=== PATIENT | female | born 1980 | race Caucasian/White ===

== ENCOUNTER 2016-09-30 10:48 | Emergency (ER) | payer MEDICARE, MEDICAID ==
[2016-09-30 11:06] VITALS: TEMP 98.8; BMI 44.8
[2016-09-30] MEDS ORDERED: METOCLOPRAMIDE 10 MG/2 ML VIAL IM ONE (12:13)
[2016-09-30] MEDS ORDERED: HYDROmorphone 1 MG INJECTION IM ONE (12:13)
[2016-09-30] MEDS ORDERED: DIPHENHYDRAMINE 50 MG/ML VIAL IM ONE (12:13)
--- NOTE | 2016-09-30 12:18 | EDPRACDOC ---
- General Information Chief Complaint: Headache Stated Complaint: MIGRAINE Time Seen by Provider: 09/30/16 12:08 Information Source: Patient Home Medications: Home Medications Gabapentin [Neurontin] 800 mg PO TID 09/21/13 Oxycodone HCl [Oxycontin] 10 mg PO BID 10/11/13 Nortriptyline HCl 5 mg PO DAILY 01/15/16 Rosuvastatin [Crestor] 10 mg PO HS 01/15/16 Allergies/Adverse Reactions: Allergies Allergy/AdvReac Type Severity Reaction Status Date / Time aspirin Allergy Difficulty Verified 09/30/16 12:00 Breathing celecoxib [From Celebrex] Allergy Difficulty Verified 09/30/16 12:00 Breathing rofecoxib [From Vioxx] Allergy Difficulty Verified 09/30/16 12:00 Breathing - History of Present Illness Onset: 3 days HPI: Pt c/o generalized headache with n/v, light sensitivity x 3 days. Hx headaches and feels similar to previous. Denies fever, earache, sore throat, congestion, cough, cp, sob, abd pain, changes in bowel or bladder. Pt states has appointment in October with neurologist due to back pain. Location: Reports: Generalized Pain Quality: Reports: Moderate, Throbbing, Like Previous Headaches Modifying Factors: improves with: Exposure to light Prior work up: Reports: CT Associated Signs and Symptoms: Reports: Frequent Headaches, Nausea/Vomiting ED Past Medical History - History Reviewed Yes Nurses notes reviewed and agree except as marked - Patient Medical History Cardiac History: Reports: Hypertension, Hypercholesterolemia Psychological History: Denies: Depression Systemic History: Reports: Diabetes Surgical History: Reports: Cholecystectomy, Hysterectomy, Other (CSXN) - Social Medical History Smoking Status: Never smoker ETOH: None Substance Abuse: None EDM Review of Systems - Review of Systems Constitutional: No Symptoms Reported. negative: Fever, Chills, Weakness, Fatigue, Loss of Appetite Eyes: Light Sensitive Ears: No Symptoms Reported. negative: Pain, Hearing Loss, Drainage, Ear Pulling Throat: No Symptoms Reported. negative: Pain, Swelling Nose: No Symptoms Reported. negative: Congestion, Bleeding, Discharge, Injection, Swelling, Deformity, Ecchymosis, Tender, Abrasion, Laceration Mouth: No Symptoms Reported. negative: Pain, Drooling Respiratory: No Symptoms Reported. negative: Cough, Brassy Cough, Barky Cough, Shortness of Breath, Wheezing, Hemoptysis Cardiovascular: No Symptoms Reported. negative: Chest Pain, Palpitations, Syncope, Edema, Orthopnea, PND, Skin Mottling, Cyanosis Gastrointestinal: Nausea, Vomiting Genitourinary: No Symptoms Reported. negative: Dysuria, Hematuria, Frequency, Discharge, Bleeding, Testicular Pain, Neurological: Headache Musculoskeletal: No Symptoms Reported. negative: Neck, Chestwall, Ribs, Back, Shoulder, Arm, Elbow, Forearm, Wrist, Hand, Pelvis, Hip, Femur, Knee, Leg, Ankle , Foot Integumentary: No Symptoms Reported. negative: Itching, Rash, Bruising, Wound Allergic/Immunologic: No Symptoms Reported. negative: Hives, Itching Hematologic: No Symptoms Reported. negative: Lymphadenopathy, Easy Bruising, Easy Bleeding Psychiatric: No Symptoms Reported. negative: Anxiety, Depression, Hallucinations, Insomnia, Suicidal - Physical Exam Constitutional: Alert (Awake), No apparent distress Oriented to: Time, Person, Place Last recorded Vital Signs: Last Vital Signs Temp 98.8 F 09/30/16 11:03 Pulse 112 09/30/16 11:46 Resp 20 09/30/16 11:46 BP 157/95 09/30/16 11:46 Pulse Ox 96 09/30/16 11:46 Oxygen Pulse Oxygen Saturation 96 O2 Device Room Air Oxygen Flow Rate Fraction of Inspired Oxygen ( FIO2) - HEENT Head: Normal ( normocephalic) Eye Exam: Normal (PERRL, EOMI, Sclera white) Oropharynx: Normal (Pharynx:Moist without exudate,Gums-no swelling) Tympanic Membrane: Normal ENT EAC: Normal TMJ: Normal Nose: No Symptoms Reported (septum midline) Neck: Normal (FROM, trachea at midline) - Respiratory/Cardiovascular Respiratory: Normal - CTA (BBS clear to auscultation without adventitious sounds ) Cardiovascular: Normal (RRR without murmur, gallop or rub) - GI Auscultation: Normal (NABS) Palpation: Normal (Soft,No rebound or guarding, non distended) Tenderness: Non tender - Musculoskeletal Back: Normal (Non-Tender) Extremities: Normal (Normal tone, Pulses 2+ No cyanosis or edema, FROM) - Integumentary Skin: Normal, Warm, Dry Lymphatics: Normal (no adenopathy) - Neurologic Memory Impaired: Normal Motor Function: Normal (Normal tone, Pulses 2+ No cyanosis or edema, FROM) Cranial Nerve: Normal (CN II-X11 intact sensation, strength 5/5) Cerebellar: Normal Mood Description: Normal Perception: Normal - Differential Diagnosis Migraine, Acute Benign Cephalgia Decision Time to Discharge: 12:55 - Departure Disposition: Home Condition: Good Final Diagnosis: Migraine Instructions: Migraine Headache (ED) Education/Counseling Given To: Patient Education/Counseling Given Regarding: Diagnosis, Treatment, Follow Up Referrals: Teresa Weber PA [Primary Care Provider] - One Week Prescriptions: No Action Gabapentin [Neurontin] 800 mg PO TID Oxycodone HCl [Oxycontin] 10 mg PO BID Rosuvastatin [Crestor] 10 mg PO HS Nortriptyline HCl 5 mg PO DAILY
[2016-09-30 13:04] VITALS: BP 139/88; PULSE 104
== END 2016-09-30 13:06 | disposition home or self-care (01) ==
LOC: ED 10:48 → EDMC 13:06
DX: G43.909 Migraine, unspecified, not intractable, without status migrainosus (principal)
CPT/HCPCS: 96372; 99283; J1170; J1200; J2765